=== PATIENT | male | born 1930 | race Caucasian/White ===

== ENCOUNTER 2018-06-21 08:07 | Inpatient (IN) | payer OTHER, MEDICARE ==
[2018-06-21] VITALS (7 sets, daily range): BP systolic 136–155; BP diastolic 53–83
[~2018-06-21] VITALS: Ht 172.7 cm; Wt 81.2 kg
--- NOTE | ~2018-06-21 | EKG ---
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1930 Requested By: Bettina Franklin Order Number: [id number] MD: Ej Martins Measurements Intervals [place] Rate: 71 P: 48 [place]: 266 QRS: -46 QRSD: 135 T: 149 QT: 469 QTc: 510 Interpretive Statements Sinus rhythm Prolonged [place] interval Left bundle branch block Compared to ECG 06/16/2018 15:44:07 No significant changes Electronically Signed On 06-23-2018 8:52:27 CDT by Ej Martins [email or web address] <ELECTRONICALLY SIGNED> By: Ej Martnis MD, [facility] 06/23/18 0852 32 32 Ej Martins MD, [facility] /EPI
--- NOTE | ~2018-06-21 | EKG ---
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
[~2018-06-21 08:07] MED LIST: ACCUNEB SO1.25 MG/1 INH; ALLOPURINOL 10100 M1 PO; AMLODIPINE BESYL5 M1 PO; ASPIR 8181 M1 PO; ASPIR 8181 MG PO; AUGMENTIN 875875 MG PO; BENAZEPRIL HCL20 MG PO; CALCIUM ACETAT667 MG PO; CLONIDINE0.1 PO; COREG6.25 MG PO; COZAAR 25 MG TA25 MG PO; CYMBALTA30 MG PO; FLOMAX0.4 MG PO; FUROSEMIDE 40 M40 M1 PO; IMDUR 30 MG TAB30 M1 PO; LASIX 40 MG TAB40 M2 PO; LASIX 80 MG TAB80 MG PO; LIPITOR80 MG PO; LISINOPRIL20 MG PO; NEBULIZER MISCELL; NITROSTAT0.3 MG SUBLING; NORCO 7.5-3251 EACH PO; NORVASC5 MG PO; PERFOROMIS20 MCG/2 M IH; PERFOROMIS20 MCG/2 M INH; PROAIR HFA8.5 GM; PROAIR RESPICL90 MCG INH; PROSCAR 5MG TABL5 MG PO; PROTONIX40 M1 PO; PULMICORT0.5 MG/22 INH; SENEXON-S TABL1 EACH PO; SENOKOT-S1 TA1 PO; STOOL SOFTENER100 M1 PO; STOOL SOFTENER100 MG PO; TOPROL XL100 MG; TOPROL XL100 MG PO; TORSEMIDE20 MG PO; TRAZODONE 150150 M1 PO; TRAZODONE HCL50 MG PO; TYLENOL325 MG PO; UNICOMPLEX M TA1 TA1 PO; VALIUM5 MG PO; VENTOLIN HFA 1818 GM INH; VITAMIN D1000 UNI1 PO; VITAMINC500 PO; XANAX 0.25 MG0.25 MG PO; XANAX 0.5 MG0.5 MG PO; [UNRECOGNIZED DRUG - CODE] SUBQ
[2018-06-21 08:45] LABS: ABSOLUTE NEUTROPHILS 2.4 thou/uL (1.4-8.2); BASOPHILS 1.4 % (0.0-2.0); EOSINOPHILS 10.7 % (0.0-3.0); HEMOGLOBIN 9.5 gm/dL (14.0-18.0); LYMPHOCYTES 21.8 % (24.0-44.0); MCH 34.3 pg (26.0-34.0); MCHC 33.8 g/dL (28.0-37.0); MCV 101.3 fL (80.0-100.0); MONOCYTES 9.9 % (1.0-8.0); PLATELET COUNT 78 thou/uL (150-400); POLYS 56.2 % (36.0-66.0); RBC 2.76 mil/uL (4.50-6.00); RDW 24.6 % (10.5-14.5); WBC 4.3 thou/uL (4.0-11.0)
[2018-06-21 08:52] LABS: ANION GAP 3 mmol/L (7-16); BUN 77 mg/dL (7-18); CALCIUM 8.9 mg/dL (8.5-10.1); CHLORIDE 106 mmol/L (98-107); CO2 28 mmol/L (21-32); CREATININE 3.2 mg/dL (0.7-1.3); GLUCOSE 99 mg/dL (74-106); POTASSIUM 4.9 mmol/L (3.5-5.1); SODIUM 137 mmol/L (136-145)
[2018-06-21 08:56] LABS: APTT 28.8 Seconds (24.5-32.8); PROTIME 10.7 Seconds (9.3-11.4)
[2018-06-21 09:00] LABS: SGOT 25 U/L (15-37); SGPT 23 U/L (30-65); TOTAL BILIRUBIN 0.7 mg/dL (<0.1-1.0); TROPONIN-I <0.06 ng/mL (<0.06)
[2018-06-21 09:14] LABS: ANISOCYTOSIS 2+; OVALOCYTES 1+
[2018-06-22 04:35] VITALS: BP 145/62
[2018-06-22 05:36] LABS: HEMATOCRIT 25.3 % (42.0-52.0); HEMOGLOBIN 8.6 gm/dL (14.0-18.0); MCH 34.3 pg (26.0-34.0); MCHC 34.1 g/dL (28.0-37.0); MCV 100.5 fL (80.0-100.0); RBC 2.52 mil/uL (4.50-6.00); RDW 23.8 % (10.5-14.5)
[2018-06-22 05:52] LABS: CALCIUM 8.9 mg/dL (8.5-10.1); CREATININE 2.9 mg/dL (0.7-1.3); POTASSIUM 4.2 mmol/L (3.5-5.1)
[2018-06-22 07:35] VITALS: BP 135/59
[2018-06-22 11:35] VITALS: BP 133/58
[2018-06-22 15:50] VITALS: BP 152/74
[2018-06-22 19:36] VITALS: BP 156/73
[2018-06-22 23:41] VITALS: BP 147/74
[2018-06-23 03:22] VITALS: BP 145/62
[2018-06-23 04:28] LABS: ALBUMIN 2.5 g/dL (3.4-5.0); CALCIUM 8.4 mg/dL (8.5-10.1); CREATININE 2.6 mg/dL (0.7-1.3); PHOSPHORUS 4.5 mg/dL (2.5-4.9); POTASSIUM 3.9 mmol/L (3.5-5.1)
[2018-06-23 07:43] VITALS: BP 157/72
[2018-06-23 15:11] VITALS: BP 157/72
[2018-06-23 16:42] VITALS: BP 141/54
[2018-06-23 19:23] VITALS: BP 148/62
[2018-06-24 03:41] VITALS: BP 133/62
[2018-06-24 05:46] LABS: HEMATOCRIT 23.7 % (42.0-52.0); HEMOGLOBIN 7.9 gm/dL (14.0-18.0); MCH 33.8 pg (26.0-34.0); MCHC 33.4 g/dL (28.0-37.0); MCV 101.4 fL (80.0-100.0); RBC 2.34 mil/uL (4.50-6.00); RDW 23.8 % (10.5-14.5)
[2018-06-24 05:48] LABS: ALBUMIN 2.5 g/dL (3.4-5.0); CALCIUM 8.6 mg/dL (8.5-10.1); CREATININE 2.4 mg/dL (0.7-1.3); MAGNESIUM 2.3 mg/dL (1.8-2.4); PHOSPHORUS 3.9 mg/dL (2.5-4.9); POTASSIUM 3.9 mmol/L (3.5-5.1)
[2018-06-24 08:14] VITALS: BP 135/60
[2018-06-24 12:00] VITALS: BP 139/55
[2018-06-24] MEDS ORDERED: ISORDIL10 MG PO (13:42)
[2018-06-24] MEDS ORDERED: LASIX 40 MG TAB40 M1 PO (13:44)
[2018-06-24 17:17] VITALS: BP 145/62
[2018-06-24] MEDS ORDERED: HYDRALAZINE 10M10 MG PO (18:23)
== END 2018-06-24 18:31 | disposition home health service (06) | DRG 291 ==
LOC: ER 08:07 → EROBS 11:02 → 3W 11:02 → ENTRNSPT 06-24 18:10 → 3W 06-24 18:31
PROVIDERS: Hospitalist; Internal Medicine Nephrology; Student in an Organized Health Care Education/Training Program
DX: I13.2 Hypertensive heart and chronic kidney disease with heart failure and with stage 5 chronic kidney disease, or end stage renal disease (principal); I50.43 Acute on chronic combined systolic (congestive) and diastolic (congestive) heart failure; E43 Unspecified severe protein-calorie malnutrition; N18.6 End stage renal disease; I69.354 Hemiplegia and hemiparesis following cerebral infarction affecting left non-dominant side; I27.20 Pulmonary hypertension, unspecified; I50.810 Right heart failure, unspecified; D63.8 Anemia in other chronic diseases classified elsewhere; F41.9 Anxiety disorder, unspecified; M62.84 Sarcopenia; J44.9 Chronic obstructive pulmonary disease, unspecified; D69.6 Thrombocytopenia, unspecified; Z66 Do not resuscitate; Z68.27 Body mass index [BMI] 27.0-27.9, adult; Z88.2 Allergy status to sulfonamides; Z88.5 Allergy status to narcotic agent; Z91.041 Radiographic dye allergy status; Z88.1 Allergy status to other antibiotic agents; Z79.51 Long term (current) use of inhaled steroids; Z87.891 Personal history of nicotine dependence; I25.2 Old myocardial infarction; Z87.01 Personal history of pneumonia (recurrent); Z79.899 Other long term (current) drug therapy
CPT/HCPCS: 10879